=== PATIENT | female | born 1950 | race Caucasian/White ===

== ENCOUNTER → 2018-09-04 | Outpatient (CLI) | payer OTHER ==
[~2018-09-04] MED LIST: AMBIEN10 MG PO; PRINIVIL5 MG PO; SYNTHROID50 MCG PO; TYLENOL325 MG PO; VERAPAMIL ER240 MG PO
== END | disposition home or self-care (01) ==
LOC: LAB 07:30
DX: D64.89 Other specified anemias (principal); D68.8 Other specified coagulation defects; N39.0 Urinary tract infection, site not specified; E11.00 Type 2 diabetes mellitus with hyperosmolarity without nonketotic hyperglycemic-hyperosmolar coma (NKHHC); E04.1 Nontoxic single thyroid nodule; E78.2 Mixed hyperlipidemia; I10 Essential (primary) hypertension; Z01.810 Encounter for preprocedural cardiovascular examination; Z01.812 Encounter for preprocedural laboratory examination

== ENCOUNTER 2018-09-06 06:31 | Day surgery (SDC) | payer OTHER | END 2018-09-06 14:05 | disposition home or self-care (01) | LOC: CIR.AMB 06:31 | DX: D24.2 Benign neoplasm of left breast (principal) ==

== ENCOUNTER 2020-04-08 13:32 | Outpatient (CLI) | payer OTHER | END 2020-04-08 13:39 | disposition home or self-care (01) | LOC: RAD 13:32 → EDBD 13:32 → RAD 13:39 | PROVIDERS: ATTEND Colon & Rectal Surgery | DX: K57.32 Diverticulitis of large intestine without perforation or abscess without bleeding (principal); K92.1 Melena ==

== ENCOUNTER 2020-04-08 14:03 | Outpatient (CLI) | payer OTHER | END 2020-04-08 14:08 | disposition home or self-care (01) | LOC: EKG 14:03 → EDBD 14:03 → EKG 14:08 | PROVIDERS: ATTEND Colon & Rectal Surgery | DX: I10 Essential (primary) hypertension (principal) ==

== ENCOUNTER 2020-04-14 10:30 | Inpatient (IN) | payer OTHER ==
[~2020-04-14] VITALS: Ht 160 cm; Wt 68.0 kg
[2020-04-14] MEDS ORDERED: VERELAN240 MG PO (14:23)
[2020-04-14] MEDS ORDERED: ZESTRIL10 M1 PO (14:23)
== END 2020-04-23 16:30 | disposition home or self-care (01) | DRG 331 ==
LOC: EDBD 10:30 → SURG 04-20 07:03 → O/R 04-20 07:03 → RECOVERY 04-20 10:30 → SURG 04-20 13:38
PROVIDERS: ADMIT Colon & Rectal Surgery; ATTEND Colon & Rectal Surgery
PROC: 0DJD8ZZ Inspection of Lower Intestinal Tract, Via Natural or Artificial Opening Endoscopic (ICD-10-PCS; 2020-04-20)
PROC: 0DTN4ZZ Resection of Sigmoid Colon, Percutaneous Endoscopic Approach (ICD-10-PCS; principal; 2020-04-20 11:00)
DX: K57.32 Diverticulitis of large intestine without perforation or abscess without bleeding (principal); E03.8 Other specified hypothyroidism; I70.0 Atherosclerosis of aorta

== ENCOUNTER 2020-10-05 08:49 | Emergency (ER) | payer OTHER ==
[~2020-10-05] VITALS: Ht 160 cm; Wt 65.8 kg
[~2020-10-05 08:49] MED LIST changes: +VERELAN240 MG PO; +ZESTRIL10 M1 PO
[2020-10-05] MEDS ORDERED: WOMEN'S 50 PLU1 EACH PO (15:13)
== END 2020-10-05 15:53 | disposition home or self-care (01) ==
LOC: ER 08:49
DX: N39.0 Urinary tract infection, site not specified (principal); R53.1 Weakness; R47.81 Slurred speech; R42 Dizziness and giddiness; Z03.818 Encounter for observation for suspected exposure to other biological agents ruled out

== ENCOUNTER 2021-02-04 06:15 | Day surgery (SDC) | payer OTHER ==
[~2021-02-04 06:15] MED LIST changes: +WOMEN'S 50 PLU1 EACH PO
== END 2021-02-04 18:15 | disposition home or self-care (01) ==
LOC: CIR.AMB 06:15
PROVIDERS: ATTEND Surgery
DX: D05.12 Intraductal carcinoma in situ of left breast (principal); D24.2 Benign neoplasm of left breast; Z20.822 Contact with and (suspected) exposure to COVID-19

== ENCOUNTER → 2021-02-16 | Outpatient (CLI) | payer OTHER | END | disposition home or self-care (01) | LOC: NUCLEAR 13:00 | PROVIDERS: ATTEND Surgery | DX: I87.2 Venous insufficiency (chronic) (peripheral) (principal); R22.42 Localized swelling, mass and lump, left lower limb ==